=== PATIENT | male | born 1940 | race Caucasian/White ===

== ENCOUNTER 2023-10-31 12:12 | Outpatient (CLI) | payer MEDICARE, SELFPAY | END 2023-10-31 12:13 | disposition home or self-care (01) | PROVIDERS: PCP Family Medicine; Visit Provider Family Medicine | DX: I10 Essential (primary) hypertension (principal); M25.50 Pain in unspecified joint; E78.2 Mixed hyperlipidemia; M25.569 Pain in unspecified knee | CPT/HCPCS: 80048; 80061; 85025; 85651; 86140; 86431 ==

== ENCOUNTER 2023-12-15 12:44 | Outpatient (CLI) | payer MEDICARE, SELFPAY ==
--- NOTE | 2023-12-15 13:00 | CT_ITS ---
Patient: ANGLE BATISTA Facility:?[facility] Patient ID:?[id number] Site Patient ID:?[id number]. Site :?[id number] Study:?CT-Sinus W/O-12/15/2023 1:15:38 PM Ordering Physician:ERI Final Report: INDICATION: Chronic sinusitis TECHNIQUE: CT of the sinuses was performed without IV contrast. COMPARISON: None. FINDINGS: Bones: Mild thickening of the ku of the bilateral maxillary sinuses. Frontal sinuses: Mild to moderate right-sided mucosal thickening. Ethmoid sinuses: Moderate mucosal thickening bilaterally. Maxillary sinuses: Moderate to severe mucosal thickening bilaterally. Mild thickening of the ku of the bilateral maxillary sinuses. Sphenoid sinuses: Moderate right mucosal thickening. Nasal cavity/septum: Mild rightward deviation. Soft tissues: Normal. Visualized brain: Normal. Additional comment: Partially opacified bilateral mastoid air cells. Bilateral lens surgery. IMPRESSION: Mucosal thickening of the paranasal sinuses with mild bony thickening of the ku of the bilateral maxillary sinuses, which is compatible with chronic rhinosinusitis. Please note that all CT scans at this facility use dose modulation, iterative reconstruction, and/or weight-based dosing when appropriate to reduce radiation dose to as low as reasonably achievable. Dictated by Rolando Watt MD @ 12/15/2023 1:54:18 PM Signed by:?Rolando Watt MD @12/15/2023 1:54:18 PM (Electronic Signature)
== END 2023-12-15 12:45 | disposition home or self-care (01) ==
PROVIDERS: PCP Family Medicine; Visit Provider Family Medicine
DX: J32.9 Chronic sinusitis, unspecified (principal); J32.0 Chronic maxillary sinusitis
CPT/HCPCS: 70486

== ENCOUNTER 2025-07-03 10:31 | Outpatient (CLI) | payer MEDICARE, SELFPAY | END 2025-07-03 10:32 | disposition home or self-care (01) | PROVIDERS: PCP Family Medicine; Visit Provider Family Medicine | DX: R20.0 Anesthesia of skin (principal); I10 Essential (primary) hypertension | CPT/HCPCS: 80048; 80061; 82607; 84443; 85025 ==